=== PATIENT | male | born 1935 | race Caucasian/White ===

== ENCOUNTER 2020-03-02 15:54 | Outpatient (CLI) | payer MEDICARE ==
--- NOTE | 2020-03-02 16:16 | RAD ---
EXAM: XR Finger(s) Rt Min 2 View DATE: 03/02/2020 4:07 PM INDICATION: Fall with right finger injury COMPARISON: None. FINDING: There is a mildly displaced, obliquely oriented fracture involving the small finger proxima l phalangeal base. There is apex dorsal angulation. The distal fracture fragment is displaced ulnarly one cortex width. There is likely fracture extension into the articular surface of the small finger proximal phalangeal base that is nondisplaced. 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 IMPRESSION:Mildly displaced, mild dorsally angulated small finger proximal phalangeal base fracture
== END 2020-03-02 15:55 | disposition home or self-care (01) ==
LOC: NAV RAD 15:54
PROVIDERS: ATTEND Internal Medicine
DX: M79.644 Pain in right finger(s) (principal); S62.616A Displaced fracture of proximal phalanx of right little finger, initial encounter for closed fracture

== ENCOUNTER 2020-07-15 13:01 | Emergency (ER) | payer MEDICARE ==
[2020-07-15] MEDS ORDERED: Ondansetron PF 4 MG/2 ML Vial ONE ×2 (13:38→16:25)
[2020-07-15] MEDS ORDERED: Morphine 4 MG/ML VIAL ONE (13:38)
[2020-07-15 13:56] LABS: #Basophils 0.1 thou/uL (0.0-0.2); #Eosinphils 0.1 thou/uL (0.0-0.7); #Lymphocytes 1.6 thou/uL (1.20-3.40); #Monocytes 0.9 thou/uL (0.11-0.59); #Neutrophils 9.4 thou/uL (1.40-6.50); %Basophils 0.5 % (0.0-1.0); %Eosinophils 0.8 % (0.0-10.0); %Lymphocytes 13.4 % (21.0-51.0); %Monocytes 7.5 % (0.0-10.0); %Neutrophils 77.7 % (42.0-75.0); ALT (SGPT) 42 U/L (8-55); AST (SGOT) 26 U/L (5-34); Albumin 4.2 g/dL (3.4-4.8); Alkaline Phosphatase 73 U/L (40-110); Anion Gap 18 mmol/L (10-20); BUN (Urea Nitrogen) 18 mg/dL (8.4-25.7); Bilirubin, Total 0.6 mg/dL (0.2-1.2); Calc. Creatinine Clearance 0 mL/min (70-130); Calcium 9.7 mg/dL (7.8-10.44); Carbon Dioxide 24 mmol/L (23-31); Chloride 96 mmol/L (98-107); Estimated GFR-MDRD 70; Globulin 3.1 g/dL (2.4-3.5); Glucose 183 mg/dL (83-110); Hemoglobin 15.4 g/dL (14.0-18.0); Mean Corpuscular HGB CONC 33.1 g/dL (32.0-36.0); Mean Corpuscular Volume 96.9 fL (78.0-98.0); Platelet Count 230 thou/uL (130-400); Potassium 3.9 mmol/L (3.5-5.1); Protein, Total 7.3 g/dL (5.8-8.1); RBC Distribution Width 11.1 % (11.5-14.5); Sodium 134 mmol/L (136-145)
[2020-07-15 14:24] LABS: Bilirubin Negative (Negative); Blood, Urine Small (Negative); Clarity Clear (Clear); Glucose, Urine (Dipstick) Negative (Negative); Ketone, Urine Trace mg/dL (Negative); Leukocyte Trace (Negative); Nitrite Positive (Negative); Protein, Urine (Dipstick) 100 mg/dL (Neg-Trace); Urobilinogen 0.2 mg/dL (Less than 2); pH, Urine 5.5 (5.0-9.0)
[2020-07-15] MEDS ORDERED: Ketorolac Tromethamine 30 MG/ML VIAL ONE (14:33)
[2020-07-15 14:43] LABS: Specific Gravity, Urine Greater/Equal 1.030 (1.005-1.030)
[2020-07-15 14:45] LABS: Bacteria/HPF 2+ HPF (None Seen); RBC/HPF 0-3 HPF (0-3); WBC/HPF 21-50 HPF (0-3)
[2020-07-15] MEDS ORDERED: cefTRIAXone\\ROCEPHIN 1 GM VIAL ONE (14:59)
[2020-07-15] MEDS ORDERED: Sodium Chloride 0.9% 100 ML ONE (14:59)
--- NOTE | 2020-07-15 15:19 | CT ---
CT BRAIN: 07/15/20 PROVIDED CLINICAL HISTORY: Headache. FINDINGS: No comparison. The ventricular system is prominent on the basis of central atrophy. Conspicuous chronic microvascula r ischemic changes are seen involving cerebral white matter. Vascular calcifications are noted. There is no evidence for intracranial hemorrhage or mass effect. The osseous structures and extracranial s oft tissues demonstrate no acute abnormality. IMPRESSION: No evidence for intracranial hemorrhage or mass effect. POS: JOSÉ
--- NOTE | 2020-07-15 16:20 | RAD ---
PORTABLE CHEST: 07/15/20 PROVIDED CLINICAL HISTORY: Headache. FINDINGS: No comparisons. Cardiac silhouette is within normal limits. Median sternotomy changes and vascular ca lcifications are seen. Advanced right glenohumeral degenerative change. No focal consolidation, pleur al fluid, or pneumothorax apparent. IMPRESSION: No evidence for an acute cardiopulmonary process. POS: JOSÉ
== END 2020-07-15 17:31 | disposition short-term general hospital (02) ==
LOC: NAV ERS 13:01
DX: N39.0 Urinary tract infection, site not specified (principal); R11.2 Nausea with vomiting, unspecified; R41.0 Disorientation, unspecified; K21.9 Gastro-esophageal reflux disease without esophagitis; E11.9 Type 2 diabetes mellitus without complications; E78.5 Hyperlipidemia, unspecified; I10 Essential (primary) hypertension; Z79.84 Long term (current) use of oral hypoglycemic drugs; Z79.899 Other long term (current) drug therapy
CPT/HCPCS: 36416; 70450; 71045; 80053; 81003; 81015; 83605; 85025; 87040; 87077; 87086; 96365; 96367; 96375; 96376; 36415-59; J0696; J1885; J2270; J2405; J3370; J3490

== ENCOUNTER 2021-07-29 13:14 | Emergency (ER) | payer MEDICARE ==
[2021-07-29] MEDS ORDERED: Sodium Chloride 0.9% 1,000 ML ONE (13:50)
[2021-07-29 14:13] LABS: #Basophils 0.1 thou/uL (0.0-0.2); #Eosinphils 0.1 thou/uL (0.0-0.7); #Lymphocytes 1.3 thou/uL (1.20-3.40); #Monocytes 1.5 thou/uL (0.11-0.59); #Neutrophils 7.7 thou/uL (1.40-6.50); %Basophils 1.1 % (0.0-1.0); %Eosinophils 0.7 % (0.0-10.0); %Lymphocytes 12.4 % (21.0-51.0); %Monocytes 13.7 % (0.0-10.0); %Neutrophils 72.1 % (42.0-75.0); Hemoglobin 12.7 g/dL (14.0-18.0); Mean Corpuscular HGB CONC 32.6 g/dL (32.0-36.0); Mean Corpuscular Hemoglobin 32.2 pg (27.0-31.0); Platelet Count 236 thou/uL (130-400); RBC Distribution Width 12.3 % (11.5-14.5); Red Blood Cell (RBC) Count 3.94 mill/uL (4.70-6.10); White Blood Cell (WBC) Count 10.7 thou/uL (4.8-10.8)
[2021-07-29] MEDS ORDERED: Ondansetron PF 4 MG/2 ML Vial ONE ×2 (14:19→15:47)
[2021-07-29 14:29] LABS: ALT (SGPT) 20 U/L (8-55); AST (SGOT) 28 U/L (5-34); Alkaline Phosphatase 55 U/L (40-110); Anion Gap 14 mmol/L (10-20); BUN (Urea Nitrogen) 21 mg/dL (8.4-25.7); Bilirubin, Total 0.8 mg/dL (0.2-1.2); CK (CPK) 277 U/L (30-200); Calc. Creatinine Clearance 0 mL/min (70-130); Calcium 9.6 mg/dL (7.8-10.44); Carbon Dioxide 27 mmol/L (23-31); Chloride 100 mmol/L (98-107); Globulin 3.6 g/dL (2.4-3.5); Glucose 104 mg/dL (83-110); Lipase 23 U/L (8-78); Potassium 3.9 mmol/L (3.5-5.1); Protein, Total 7.6 g/dL (5.8-8.1); Sodium 137 mmol/L (136-145)
[2021-07-29 14:48] LABS: Bilirubin Small (Negative); Blood, Urine Negative (Negative); Clarity Clear (Clear); Glucose, Urine (Dipstick) Negative (Negative); Ketone, Urine Negative (Negative); Leukocyte Negative (Negative); Nitrite Negative (Negative); Protein, Urine (Dipstick) > or equal to 300 mg/dL (Neg-Trace); pH, Urine 5.5 (5.0-9.0)
[2021-07-29 14:55] LABS: Bacteria/HPF 1+ HPF (None Seen); RBC/HPF None Seen HPF (0-3); Squamous Epithelial 0-3 HPF (0-3)
== END 2021-07-29 15:55 | disposition home or self-care (01) ==
LOC: NAV ERS 13:14
DX: R53.1 Weakness (principal); R11.2 Nausea with vomiting, unspecified; Z79.899 Other long term (current) drug therapy; Z79.82 Long term (current) use of aspirin; Z79.84 Long term (current) use of oral hypoglycemic drugs; K21.9 Gastro-esophageal reflux disease without esophagitis; E11.9 Type 2 diabetes mellitus without complications; E78.5 Hyperlipidemia, unspecified; I10 Essential (primary) hypertension; Z87.891 Personal history of nicotine dependence
CPT/HCPCS: 70450; 80053; 81003; 81015; 82550; 83605; 83690; 84443; 84484; 85025; 93005; 96374; 96376; J2405; J7050

== ENCOUNTER 2021-08-02 12:10 | Inpatient (IN) | payer MEDICARE ==
[2021-08-02] MEDS ORDERED: FLU VACC QS2021-22(65YR UP)/PF 240 MCG/0.7 ML SYRINGE IM ONE (14:15)
[2021-08-02] MEDS ORDERED: Bisacodyl 10 MG SUPP PR PRN (16:18)
[2021-08-02] MEDS ORDERED: Senokot S 8.6-50 MG TAB PO PRN (16:18)
[2021-08-02] MEDS ORDERED: Ondansetron PF 4 MG/2 ML Vial IVP PRN (16:18)
[2021-08-02] MEDS ORDERED: Dextrose 50% Abboject 50 ML SYRINGE SLOW IVP PRN (16:18)
[2021-08-02] MEDS ORDERED: Acetaminophen 650 MG Suppository PR PRN (16:18)
[2021-08-02] MEDS ORDERED: Loperamide HCl 2 MG CAP PO PRN ×2 (16:18)
[2021-08-02] MEDS ORDERED: Cepastat Lozenges 1 LOZ PO PRN (16:18)
[2021-08-02] MEDS ORDERED: HumaLOG 300 UNITS/3 ML VIAL SC PRN (16:18)
[2021-08-02] MEDS ORDERED: Calcium Carbonate 500 MG ChewTAB PO PRN (16:18)
[2021-08-02] MEDS ORDERED: Bisacodyl 5 MG TAB PO PRN (16:18)
[2021-08-02] MEDS ORDERED: Artificial Tear Sol 15 ML BOT EA EYE PRN (16:18)
[2021-08-02 16:32] LABS: SARS-CoV-2 NAA Rapid Test Not Detected (NotDetected)
[2021-08-02] MEDS: Sodium Chloride 0.65% Nasal 44 ML BOT EA NARE PRN (16:51)
[2021-08-02] MEDS: Loratadine 10 MG TAB PO PRN ×2 (16:53→21:03)
[2021-08-02] MEDS: Sucralfate 1 GM TAB PO SCH (21:03)
[2021-08-02] MEDS: Metoprolol Tartrate 50 MG TAB PO SCH (21:03)
[2021-08-02] MEDS: Benzonatate 100 MG CAP PO PRN (21:03)
[2021-08-02] MEDS: Acetaminophen 325 MG TAB PO SCH (21:04)
[2021-08-02] MEDS: HYDROcodone/Acetaminophen 5/325 mg Tablet PO PRN (23:45)
[2021-08-03 06:54] LABS: Anion Gap 12 mmol/L (10-20); BUN (Urea Nitrogen) 21 mg/dL (8.4-25.7); Calc. Creatinine Clearance 109 mL/min (70-130); Calcium 9.1 mg/dL (7.8-10.44); Carbon Dioxide 30 mmol/L (23-31); Chloride 100 mmol/L (98-107); Glucose 110 mg/dL (83-110); Potassium 4.2 mmol/L (3.5-5.1); Sodium 138 mmol/L (136-145)
[2021-08-03 07:14] LABS: #Basophils 0.1 thou/uL (0.0-0.2); #Monocytes 0.9 thou/uL (0.11-0.59); #Neutrophils 7.7 thou/uL (1.40-6.50); %Basophils 0.8 % (0.0-1.0); %Eosinophils 0.2 % (0.0-10.0); %Lymphocytes 10.4 % (21.0-51.0); %Neutrophils 79.6 % (42.0-75.0); Hemoglobin 11.8 g/dL (14.0-18.0); Mean Corpuscular HGB CONC 32.4 g/dL (32.0-36.0); Mean Corpuscular Hemoglobin 32.4 pg (27.0-31.0); Mean Platelet Volume 7.3 fL (7.4-10.4); Platelet Count 300 thou/uL (130-400); RBC Distribution Width 12.7 % (11.5-14.5); Red Blood Cell (RBC) Count 3.63 mill/uL (4.70-6.10); White Blood Cell (WBC) Count 9.6 thou/uL (4.8-10.8)
[2021-08-03] MEDS: Citalopram 20 MG TAB PO SCH (08:28)
[2021-08-03] MEDS: metFORMIN XR 500 MG TAB PO SCH (08:28)
[2021-08-03] MEDS: Clopidogrel Bisulfate 75 MG TAB PO SCH (08:28)
[2021-08-03] MEDS: Sucralfate 1 GM TAB PO SCH ×2 (08:28→20:39)
[2021-08-03] MEDS: Metoprolol Tartrate 50 MG TAB PO SCH ×2 (08:28→20:39)
[2021-08-03] MEDS: Acetaminophen 325 MG TAB PO SCH ×2 (08:28→20:39)
[2021-08-03] MEDS: HYDROcodone/Acetaminophen 5/325 mg Tablet PO PRN ×3 (09:35→17:37)
[2021-08-03] MEDS: hydrOXYzine 25 MG TAB PO PRN (20:39)
[2021-08-04] MEDS: HYDROcodone/Acetaminophen 5/325 mg Tablet PO PRN ×6 (03:08→23:26)
[2021-08-04] MEDS: metFORMIN XR 500 MG TAB PO SCH (08:18)
[2021-08-04] MEDS: Metoprolol Tartrate 50 MG TAB PO SCH ×2 (08:18→20:41)
[2021-08-04] MEDS: Clopidogrel Bisulfate 75 MG TAB PO SCH (08:18)
[2021-08-04] MEDS: Acetaminophen 325 MG TAB PO SCH ×2 (08:18→20:41)
[2021-08-04] MEDS: Sucralfate 1 GM TAB PO SCH ×2 (08:18→20:41)
[2021-08-04] MEDS: Citalopram 20 MG TAB PO SCH (08:18)
[2021-08-04] MEDS ORDERED: Lidocaine 5% Patch TD SCH (09:00)
[2021-08-04] MEDS: Loratadine 10 MG TAB PO PRN (15:10)
[2021-08-04] MEDS: hydrOXYzine 25 MG TAB PO PRN (20:41)
[2021-08-04] MEDS ORDERED: Transdermal Patch Removal TOP SCH (21:00)
[2021-08-05] MEDS: HYDROcodone/Acetaminophen 5/325 mg Tablet PO PRN ×5 (03:49→20:24)
[2021-08-05] MEDS: metFORMIN XR 500 MG TAB PO SCH (07:55)
[2021-08-05] MEDS: Sodium Chloride 0.65% Nasal 44 ML BOT EA NARE PRN (07:55)
[2021-08-05] MEDS: Metoprolol Tartrate 50 MG TAB PO SCH ×2 (07:56→20:23)
[2021-08-05] MEDS: Citalopram 20 MG TAB PO SCH (07:56)
[2021-08-05] MEDS: Sucralfate 1 GM TAB PO SCH ×2 (07:56→20:23)
[2021-08-05] MEDS: Acetaminophen 325 MG TAB PO SCH ×2 (07:57→20:23)
[2021-08-05] MEDS: Clopidogrel Bisulfate 75 MG TAB PO SCH (07:57)
[2021-08-05] MEDS ORDERED: Lidocaine 5% Patch TD SCH (14:00)
[2021-08-05] MEDS: hydrOXYzine 25 MG TAB PO PRN (20:23)
[2021-08-06] MEDS ORDERED: Transdermal Patch Removal TOP SCH (04:00)
[2021-08-06] MEDS: HYDROcodone/Acetaminophen 5/325 mg Tablet PO PRN ×2 (04:30→12:03)
[2021-08-06] MEDS: Clopidogrel Bisulfate 75 MG TAB PO SCH (08:52)
[2021-08-06] MEDS: Sucralfate 1 GM TAB PO SCH ×2 (08:52→20:30)
[2021-08-06] MEDS: Metoprolol Tartrate 50 MG TAB PO SCH ×2 (08:52→20:30)
[2021-08-06] MEDS: Citalopram 20 MG TAB PO SCH (08:52)
[2021-08-06] MEDS: metFORMIN XR 500 MG TAB PO SCH (08:52)
[2021-08-06] MEDS: Acetaminophen 325 MG TAB PO SCH ×2 (08:53→20:30)
[2021-08-06] MEDS: Acetaminophen/Codeine 30-300mg Tablet PO PRN ×2 (18:28→23:07)
[2021-08-06] MEDS: Lidocaine 5% Patch TD SCH (20:30)
[2021-08-07] MEDS: Sodium Chloride 0.65% Nasal 44 ML BOT EA NARE PRN (00:28)
[2021-08-07] MEDS: Acetaminophen/Codeine 30-300mg Tablet PO PRN ×4 (04:11→20:46)
[2021-08-07] MEDS: Sucralfate 1 GM TAB PO SCH ×2 (07:34→20:47)
[2021-08-07] MEDS: Citalopram 20 MG TAB PO SCH (07:34)
[2021-08-07] MEDS: metFORMIN XR 500 MG TAB PO SCH (07:34)
[2021-08-07] MEDS: Metoprolol Tartrate 50 MG TAB PO SCH ×2 (07:35→20:47)
[2021-08-07] MEDS: Clopidogrel Bisulfate 75 MG TAB PO SCH (07:35)
[2021-08-07] MEDS: Acetaminophen 325 MG TAB PO SCH ×2 (07:35→20:47)
[2021-08-07] MEDS: LIDOCAINE Patch Removal TOP SCH (07:37)
[2021-08-07 17:36] LABS: Bilirubin Negative (Negative); Blood, Urine Negative (Negative); Clarity Clear (Clear); Glucose, Urine (Dipstick) Negative (Negative); Ketone, Urine Negative (Negative); Leukocyte Negative (Negative); Nitrite Negative (Negative); Protein, Urine (Dipstick) 100 mg/dL (Neg-Trace); Specific Gravity, Urine 1.025 (1.005-1.030); pH, Urine 6.5 (5.0-9.0)
[2021-08-07 17:45] LABS: RBC/HPF 0-3 HPF (0-3); Squamous Epithelial 0-3 HPF (0-3); Urine Culture Reflex No No; WBC/HPF 0-3 HPF (0-3)
[2021-08-07] MEDS: Lidocaine 5% Patch TD SCH (20:45)
[2021-08-07] MEDS: hydrOXYzine 25 MG TAB PO PRN (20:47)
[2021-08-08] MEDS: Acetaminophen/Codeine 30-300mg Tablet PO PRN ×3 (06:11→21:01)
[2021-08-08] MEDS: Acetaminophen 325 MG TAB PO SCH ×2 (07:38→21:01)
[2021-08-08] MEDS: Sucralfate 1 GM TAB PO SCH ×2 (07:38→21:00)
[2021-08-08] MEDS: metFORMIN XR 500 MG TAB PO SCH (07:38)
[2021-08-08] MEDS: Clopidogrel Bisulfate 75 MG TAB PO SCH (07:38)
[2021-08-08] MEDS: Metoprolol Tartrate 50 MG TAB PO SCH ×2 (07:38→21:00)
[2021-08-08] MEDS: Citalopram 20 MG TAB PO SCH (07:38)
[2021-08-08] MEDS: LIDOCAINE Patch Removal TOP SCH (12:37)
[2021-08-08] MEDS: hydrOXYzine 25 MG TAB PO PRN (21:00)
[2021-08-08] MEDS: Lidocaine 5% Patch TD SCH (21:00)
[2021-08-09] MEDS: Acetaminophen/Codeine 30-300mg Tablet PO PRN ×3 (05:57→21:13)
[2021-08-09] MEDS: Metoprolol Tartrate 50 MG TAB PO SCH ×2 (07:50→21:11)
[2021-08-09] MEDS: Sucralfate 1 GM TAB PO SCH ×2 (07:50→21:11)
[2021-08-09] MEDS: metFORMIN XR 500 MG TAB PO SCH (07:50)
[2021-08-09] MEDS: Citalopram 20 MG TAB PO SCH (07:50)
[2021-08-09] MEDS: LIDOCAINE Patch Removal TOP SCH (07:51)
[2021-08-09] MEDS: Clopidogrel Bisulfate 75 MG TAB PO SCH (07:51)
[2021-08-09] MEDS: Acetaminophen 325 MG TAB PO SCH ×2 (07:51→21:10)
[2021-08-09] MEDS: Guaifenesin DM 100-10/5 ML UDCUP PO PRN (10:41)
[2021-08-09] MEDS: Loratadine 10 MG TAB PO PRN (10:42)
[2021-08-09] MEDS: Benzonatate 100 MG CAP PO PRN (10:42)
[2021-08-09] MEDS: Acetaminophen 325 MG TAB PO PRN (16:58)
[2021-08-09] MEDS: Lidocaine 5% Patch TD SCH (21:11)
[2021-08-09] MEDS: hydrOXYzine 25 MG TAB PO PRN (21:11)
[2021-08-10] MEDS: Acetaminophen/Codeine 30-300mg Tablet PO PRN ×4 (08:01→23:45)
[2021-08-10] MEDS: Citalopram 20 MG TAB PO SCH (08:02)
[2021-08-10] MEDS: Sucralfate 1 GM TAB PO SCH ×2 (08:02→20:28)
[2021-08-10] MEDS: metFORMIN XR 500 MG TAB PO SCH (08:02)
[2021-08-10] MEDS: Acetaminophen 325 MG TAB PO SCH ×2 (08:02→20:27)
[2021-08-10] MEDS: Clopidogrel Bisulfate 75 MG TAB PO SCH (08:03)
[2021-08-10] MEDS: Metoprolol Tartrate 50 MG TAB PO SCH ×2 (08:03→20:27)
[2021-08-10] MEDS: LIDOCAINE Patch Removal TOP SCH ×2 (08:04→09:00)
[2021-08-10 19:28] LABS: SARS-CoV-2 PCR by NAA Not Detected (NotDetected)
[2021-08-10] MEDS: Lidocaine 5% Patch TD SCH (20:28)
[2021-08-11] MEDS: Acetaminophen/Codeine 30-300mg Tablet PO PRN ×4 (04:40→21:18)
[2021-08-11] MEDS: Acetaminophen 325 MG TAB PO SCH ×2 (08:00→21:19)
[2021-08-11] MEDS: Citalopram 20 MG TAB PO SCH (08:00)
[2021-08-11] MEDS: Metoprolol Tartrate 50 MG TAB PO SCH ×2 (08:01→21:19)
[2021-08-11] MEDS: Sucralfate 1 GM TAB PO SCH ×2 (08:01→21:19)
[2021-08-11] MEDS: Clopidogrel Bisulfate 75 MG TAB PO SCH (08:01)
[2021-08-11] MEDS: metFORMIN XR 500 MG TAB PO SCH (08:01)
[2021-08-11] MEDS: LIDOCAINE Patch Removal TOP SCH (09:00)
[2021-08-11] MEDS: Lidocaine 5% Patch TD SCH (21:18)
[2021-08-11] MEDS: hydrOXYzine 25 MG TAB PO PRN (21:19)
[2021-08-12] MEDS: LIDOCAINE Patch Removal TOP SCH ×2 (06:21→20:29)
[2021-08-12] MEDS: Acetaminophen/Codeine 30-300mg Tablet PO PRN ×2 (08:05→20:27)
[2021-08-12] MEDS: Acetaminophen 325 MG TAB PO SCH ×2 (08:06→20:27)
[2021-08-12] MEDS: Metoprolol Tartrate 50 MG TAB PO SCH ×2 (08:07→20:27)
[2021-08-12] MEDS: metFORMIN XR 500 MG TAB PO SCH (08:07)
[2021-08-12] MEDS: Sucralfate 1 GM TAB PO SCH ×2 (08:07→20:27)
[2021-08-12] MEDS: Clopidogrel Bisulfate 75 MG TAB PO SCH (08:07)
[2021-08-12] MEDS: Citalopram 20 MG TAB PO SCH (08:07)
[2021-08-12] MEDS: Ondansetron ODT 4 MG TAB PO PRN (18:26)
[2021-08-12] MEDS: hydrOXYzine 25 MG TAB PO PRN (20:27)
[2021-08-12] MEDS: Lidocaine 5% Patch TD SCH (20:28)
[2021-08-13] MEDS: Acetaminophen 325 MG TAB PO SCH ×2 (08:07→20:06)
[2021-08-13] MEDS: Citalopram 20 MG TAB PO SCH (08:08)
[2021-08-13] MEDS: Clopidogrel Bisulfate 75 MG TAB PO SCH (08:08)
[2021-08-13] MEDS: metFORMIN XR 500 MG TAB PO SCH (08:09)
[2021-08-13] MEDS: Sucralfate 1 GM TAB PO SCH ×2 (08:09→20:06)
[2021-08-13] MEDS: Metoprolol Tartrate 50 MG TAB PO SCH ×2 (08:09→20:06)
[2021-08-13] MEDS: Acetaminophen/Codeine 30-300mg Tablet PO PRN ×2 (08:11→18:08)
[2021-08-13] MEDS: hydrOXYzine 25 MG TAB PO PRN (20:06)
[2021-08-13] MEDS: LIDOCAINE Patch Removal TOP SCH (20:07)
[2021-08-13] MEDS: Lidocaine 5% Patch TD SCH (20:07)
[2021-08-14] MEDS: Acetaminophen 325 MG TAB PO SCH ×2 (08:07→20:19)
[2021-08-14] MEDS: Clopidogrel Bisulfate 75 MG TAB PO SCH (08:08)
[2021-08-14] MEDS: Citalopram 20 MG TAB PO SCH (08:08)
[2021-08-14] MEDS: metFORMIN XR 500 MG TAB PO SCH (08:09)
[2021-08-14] MEDS: Acetaminophen/Codeine 30-300mg Tablet PO PRN ×3 (08:09→20:19)
[2021-08-14] MEDS: Metoprolol Tartrate 50 MG TAB PO SCH ×2 (08:09→20:19)
[2021-08-14] MEDS: Sucralfate 1 GM TAB PO SCH ×2 (09:42→20:19)
[2021-08-14] MEDS: hydrOXYzine 25 MG TAB PO PRN (20:19)
[2021-08-14] MEDS: Lidocaine 5% Patch TD SCH (20:20)
[2021-08-14] MEDS: LIDOCAINE Patch Removal TOP SCH (20:20)
[2021-08-15] MEDS: Acetaminophen/Codeine 30-300mg Tablet PO PRN ×2 (08:05→19:30)
[2021-08-15] MEDS: Sucralfate 1 GM TAB PO SCH ×2 (09:01→20:19)
[2021-08-15] MEDS: metFORMIN XR 500 MG TAB PO SCH (09:01)
[2021-08-15] MEDS: Citalopram 20 MG TAB PO SCH (09:01)
[2021-08-15] MEDS: Metoprolol Tartrate 50 MG TAB PO SCH ×2 (09:01→20:19)
[2021-08-15] MEDS: Clopidogrel Bisulfate 75 MG TAB PO SCH (09:01)
[2021-08-15] MEDS: Acetaminophen 325 MG TAB PO SCH ×2 (09:02→20:21)
[2021-08-15] MEDS: Lidocaine 5% Patch TD SCH (20:19)
[2021-08-15] MEDS: hydrOXYzine 25 MG TAB PO PRN (20:20)
[2021-08-16] MEDS: Acetaminophen/Codeine 30-300mg Tablet PO PRN ×2 (07:57→13:49)
[2021-08-16] MEDS: Acetaminophen 325 MG TAB PO SCH ×2 (07:59→21:10)
[2021-08-16] MEDS: Metoprolol Tartrate 50 MG TAB PO SCH ×2 (08:00→21:09)
[2021-08-16] MEDS: metFORMIN XR 500 MG TAB PO SCH (08:00)
[2021-08-16] MEDS: Citalopram 20 MG TAB PO SCH (08:00)
[2021-08-16] MEDS: Sucralfate 1 GM TAB PO SCH ×2 (08:00→21:09)
[2021-08-16] MEDS: Clopidogrel Bisulfate 75 MG TAB PO SCH (08:00)
[2021-08-16] MEDS: LIDOCAINE Patch Removal TOP SCH (10:28)
[2021-08-16] MEDS: Lidocaine 5% Patch TD SCH (20:53)
[2021-08-16] MEDS: hydrOXYzine 25 MG TAB PO PRN (21:09)
[2021-08-17] MEDS: Acetaminophen/Codeine 30-300mg Tablet PO PRN (08:08)
[2021-08-17] MEDS: Acetaminophen 325 MG TAB PO SCH ×2 (09:22→20:57)
[2021-08-17] MEDS: Citalopram 20 MG TAB PO SCH (09:23)
[2021-08-17] MEDS: Clopidogrel Bisulfate 75 MG TAB PO SCH (09:23)
[2021-08-17] MEDS: Sucralfate 1 GM TAB PO SCH ×2 (09:23→20:56)
[2021-08-17] MEDS: Metoprolol Tartrate 50 MG TAB PO SCH ×2 (09:24→20:56)
[2021-08-17] MEDS: metFORMIN XR 500 MG TAB PO SCH (09:24)
[2021-08-17] MEDS: LIDOCAINE Patch Removal TOP SCH (09:26)
[2021-08-17] MEDS: Indomethacin 25 mg Capsule PO SCH ×2 (15:31→20:56)
[2021-08-17 16:42] LABS: SARS-CoV-2 PCR by NAA Not Detected (NotDetected)
[2021-08-17] MEDS: hydrOXYzine 25 MG TAB PO PRN (20:56)
[2021-08-17] MEDS: Lidocaine 5% Patch TD SCH (20:57)
[2021-08-18] MEDS: metFORMIN XR 500 MG TAB PO SCH (08:31)
[2021-08-18] MEDS: Indomethacin 25 mg Capsule PO SCH ×3 (08:31→20:25)
[2021-08-18] MEDS: Sucralfate 1 GM TAB PO SCH ×2 (08:31→20:25)
[2021-08-18] MEDS: Acetaminophen 325 MG TAB PO SCH ×2 (08:31→20:25)
[2021-08-18] MEDS: Clopidogrel Bisulfate 75 MG TAB PO SCH (08:32)
[2021-08-18] MEDS: Metoprolol Tartrate 50 MG TAB PO SCH ×2 (08:32→20:25)
[2021-08-18] MEDS: LIDOCAINE Patch Removal TOP SCH (08:32)
[2021-08-18] MEDS: Citalopram 20 MG TAB PO SCH (08:32)
[2021-08-18] MEDS: hydrOXYzine 25 MG TAB PO PRN (20:25)
[2021-08-18] MEDS: Lidocaine 5% Patch TD SCH (20:29)
[2021-08-19] MEDS: Acetaminophen/Codeine 30-300mg Tablet PO PRN (08:00)
[2021-08-19] MEDS: Acetaminophen 325 MG TAB PO SCH ×2 (08:02→20:38)
[2021-08-19] MEDS: Citalopram 20 MG TAB PO SCH (08:03)
[2021-08-19] MEDS: Clopidogrel Bisulfate 75 MG TAB PO SCH (08:03)
[2021-08-19] MEDS: Metoprolol Tartrate 50 MG TAB PO SCH ×2 (08:03→20:39)
[2021-08-19] MEDS: Indomethacin 25 mg Capsule PO SCH ×3 (08:03→20:38)
[2021-08-19] MEDS: metFORMIN XR 500 MG TAB PO SCH (08:03)
[2021-08-19] MEDS: Sucralfate 1 GM TAB PO SCH ×2 (08:03→20:39)
[2021-08-19] MEDS: LIDOCAINE Patch Removal TOP SCH (08:04)
[2021-08-19] MEDS: Lidocaine 5% Patch TD SCH (20:39)
[2021-08-19] MEDS: hydrOXYzine 25 MG TAB PO PRN (20:39)
[2021-08-20] MEDS: metFORMIN XR 500 MG TAB PO SCH (08:01)
[2021-08-20] MEDS: Acetaminophen 325 MG TAB PO SCH ×2 (08:01→20:31)
[2021-08-20] MEDS: Indomethacin 25 mg Capsule PO SCH ×3 (08:01→20:29)
[2021-08-20] MEDS: Sucralfate 1 GM TAB PO SCH ×2 (08:01→20:29)
[2021-08-20] MEDS: Metoprolol Tartrate 50 MG TAB PO SCH ×2 (08:01→20:29)
[2021-08-20] MEDS: Clopidogrel Bisulfate 75 MG TAB PO SCH (08:01)
[2021-08-20] MEDS: Citalopram 20 MG TAB PO SCH (08:01)
[2021-08-20] MEDS: LIDOCAINE Patch Removal TOP SCH (09:00)
[2021-08-20] MEDS: Ondansetron ODT 4 MG TAB PO PRN (10:12)
[2021-08-20] MEDS: Sulfameth/Trimethoprim DS 800-160mg TAB PO SCH (20:29)
[2021-08-20] MEDS: hydrOXYzine 25 MG TAB PO PRN (20:30)
[2021-08-20] MEDS: Lidocaine 5% Patch TD SCH (20:32)
[2021-08-21 06:33] LABS: #Basophils 0.1 thou/uL (0.0-0.2); #Eosinphils 0.1 thou/uL (0.0-0.7); #Lymphocytes 0.7 thou/uL (1.20-3.40); #Monocytes 0.8 thou/uL (0.11-0.59); #Neutrophils 4.5 thou/uL (1.40-6.50); %Basophils 1.4 % (0.0-1.0); %Eosinophils 2.4 % (0.0-10.0); %Lymphocytes 10.6 % (21.0-51.0); %Neutrophils 72.7 % (42.0-75.0); Hemoglobin 13.5 g/dL (14.0-18.0); Mean Corpuscular HGB CONC 31.8 g/dL (32.0-36.0); Mean Platelet Volume 7.7 fL (7.4-10.4); Platelet Count 288 thou/uL (130-400); RBC Distribution Width 12.7 % (11.5-14.5); Red Blood Cell (RBC) Count 4.22 mill/uL (4.70-6.10); White Blood Cell (WBC) Count 6.2 thou/uL (4.8-10.8)
[2021-08-21 06:41] LABS: Anion Gap 16 mmol/L (10-20); BUN (Urea Nitrogen) 22 mg/dL (8.4-25.7); Calc. Creatinine Clearance 73 mL/min (70-130); Calcium 10.1 mg/dL (7.8-10.44); Carbon Dioxide 24 mmol/L (23-31); Chloride 99 mmol/L (98-107); Glucose 110 mg/dL (83-110); Potassium 5.1 mmol/L (3.5-5.1); Sodium 134 mmol/L (136-145)
[2021-08-21] MEDS: Sucralfate 1 GM TAB PO SCH ×2 (07:47→20:28)
[2021-08-21] MEDS: Indomethacin 25 mg Capsule PO SCH ×3 (07:47→20:29)
[2021-08-21] MEDS: metFORMIN XR 500 MG TAB PO SCH (07:48)
[2021-08-21] MEDS: Citalopram 20 MG TAB PO SCH (07:48)
[2021-08-21] MEDS: Clopidogrel Bisulfate 75 MG TAB PO SCH (07:48)
[2021-08-21] MEDS: Sulfameth/Trimethoprim DS 800-160mg TAB PO SCH ×2 (07:48→20:29)
[2021-08-21] MEDS: Metoprolol Tartrate 50 MG TAB PO SCH ×2 (07:48→20:29)
[2021-08-21] MEDS: Acetaminophen 325 MG TAB PO SCH ×2 (07:48→20:29)
[2021-08-21] MEDS: LIDOCAINE Patch Removal TOP SCH (07:49)
[2021-08-21] MEDS: Lidocaine 5% Patch TD SCH (20:29)
[2021-08-21] MEDS: hydrOXYzine 25 MG TAB PO PRN (20:29)
[2021-08-22] MEDS: metFORMIN XR 500 MG TAB PO SCH (09:03)
[2021-08-22] MEDS: Sulfameth/Trimethoprim DS 800-160mg TAB PO SCH ×2 (09:03→21:05)
[2021-08-22] MEDS: Citalopram 20 MG TAB PO SCH (09:03)
[2021-08-22] MEDS: Indomethacin 25 mg Capsule PO SCH ×3 (09:03→21:05)
[2021-08-22] MEDS: Sucralfate 1 GM TAB PO SCH ×2 (09:03→21:05)
[2021-08-22] MEDS: Metoprolol Tartrate 50 MG TAB PO SCH ×2 (09:03→21:06)
[2021-08-22] MEDS: Clopidogrel Bisulfate 75 MG TAB PO SCH (09:03)
[2021-08-22] MEDS: Acetaminophen 325 MG TAB PO SCH ×2 (09:04→21:06)
[2021-08-22] MEDS: Acetaminophen/Codeine 30-300mg Tablet PO PRN (09:05)
[2021-08-22] MEDS: LIDOCAINE Patch Removal TOP SCH (09:06)
[2021-08-22] MEDS: Sodium Chloride 0.65% Nasal 44 ML BOT EA NARE PRN (09:07)
[2021-08-22] MEDS: hydrOXYzine 25 MG TAB PO PRN (21:05)
[2021-08-22] MEDS: Lidocaine 5% Patch TD SCH (21:08)
[2021-08-23] MEDS: Indomethacin 25 mg Capsule PO SCH ×3 (08:06→20:44)
[2021-08-23] MEDS: Citalopram 20 MG TAB PO SCH (08:07)
[2021-08-23] MEDS: Metoprolol Tartrate 50 MG TAB PO SCH ×2 (08:07→20:44)
[2021-08-23] MEDS: Sulfameth/Trimethoprim DS 800-160mg TAB PO SCH ×2 (08:07→20:44)
[2021-08-23] MEDS: metFORMIN XR 500 MG TAB PO SCH (08:07)
[2021-08-23] MEDS: Clopidogrel Bisulfate 75 MG TAB PO SCH (08:07)
[2021-08-23] MEDS: Sucralfate 1 GM TAB PO SCH ×2 (08:07→20:44)
[2021-08-23] MEDS: Acetaminophen 325 MG TAB PO SCH ×2 (08:08→20:45)
[2021-08-23] MEDS: LIDOCAINE Patch Removal TOP SCH (09:47)
[2021-08-23] MEDS: Ondansetron ODT 4 MG TAB PO PRN (09:53)
[2021-08-23] MEDS: Lidocaine 5% Patch TD SCH (20:45)
[2021-08-24] MEDS: Acetaminophen/Codeine 30-300mg Tablet PO PRN (07:39)
[2021-08-24] MEDS: Sucralfate 1 GM TAB PO SCH ×2 (08:40→20:42)
[2021-08-24] MEDS: Indomethacin 25 mg Capsule PO SCH ×3 (08:40→20:42)
[2021-08-24] MEDS: Sulfameth/Trimethoprim DS 800-160mg TAB PO SCH ×2 (08:40→20:42)
[2021-08-24] MEDS: Citalopram 20 MG TAB PO SCH (08:41)
[2021-08-24] MEDS: metFORMIN XR 500 MG TAB PO SCH (08:41)
[2021-08-24] MEDS: Acetaminophen 325 MG TAB PO SCH ×2 (08:41→20:42)
[2021-08-24] MEDS: Metoprolol Tartrate 50 MG TAB PO SCH ×2 (08:41→20:42)
[2021-08-24] MEDS: Clopidogrel Bisulfate 75 MG TAB PO SCH (08:41)
[2021-08-24] MEDS: LIDOCAINE Patch Removal TOP SCH (08:42)
[2021-08-24] MEDS: Lidocaine 5% Patch TD SCH (20:42)
[2021-08-25] MEDS: Acetaminophen/Codeine 30-300mg Tablet PO PRN (07:44)
[2021-08-25] MEDS: Sucralfate 1 GM TAB PO SCH ×2 (07:45→20:16)
[2021-08-25] MEDS: metFORMIN XR 500 MG TAB PO SCH (07:45)
[2021-08-25] MEDS: Indomethacin 25 mg Capsule PO SCH ×3 (07:45→20:16)
[2021-08-25] MEDS: Acetaminophen 325 MG TAB PO SCH ×2 (07:46→20:16)
[2021-08-25] MEDS: Clopidogrel Bisulfate 75 MG TAB PO SCH (07:46)
[2021-08-25] MEDS: Sulfameth/Trimethoprim DS 800-160mg TAB PO SCH ×2 (07:47→20:16)
[2021-08-25] MEDS: Citalopram 20 MG TAB PO SCH (07:47)
[2021-08-25] MEDS: Metoprolol Tartrate 50 MG TAB PO SCH ×2 (07:47→20:16)
[2021-08-25] MEDS: LIDOCAINE Patch Removal TOP SCH (07:48)
[2021-08-25] MEDS: Lidocaine 5% Patch TD SCH (20:16)
[2021-08-25 23:28] LABS: SARS-CoV-2 PCR by NAA Not Detected (NotDetected)
[2021-08-26] MEDS: Acetaminophen 325 MG TAB PO SCH ×2 (07:54→20:54)
[2021-08-26] MEDS: Clopidogrel Bisulfate 75 MG TAB PO SCH (07:56)
[2021-08-26] MEDS: Indomethacin 25 mg Capsule PO SCH ×3 (07:56→20:57)
[2021-08-26] MEDS: Sucralfate 1 GM TAB PO SCH ×2 (07:56→20:54)
[2021-08-26] MEDS: Citalopram 20 MG TAB PO SCH (07:56)
[2021-08-26] MEDS: Sulfameth/Trimethoprim DS 800-160mg TAB PO SCH ×2 (07:56→20:54)
[2021-08-26] MEDS: Metoprolol Tartrate 50 MG TAB PO SCH ×2 (07:57→20:57)
[2021-08-26] MEDS: metFORMIN XR 500 MG TAB PO SCH (07:58)
[2021-08-26] MEDS: LIDOCAINE Patch Removal TOP SCH (07:59)
[2021-08-26] MEDS: Lidocaine 5% Patch TD SCH (20:58)
[2021-08-27] MEDS: Clopidogrel Bisulfate 75 MG TAB PO SCH (09:04)
[2021-08-27] MEDS: metFORMIN XR 500 MG TAB PO SCH (09:04)
[2021-08-27] MEDS: Sulfameth/Trimethoprim DS 800-160mg TAB PO SCH ×2 (09:04→20:07)
[2021-08-27] MEDS: Acetaminophen 325 MG TAB PO SCH ×2 (09:05→20:07)
[2021-08-27] MEDS: Citalopram 20 MG TAB PO SCH (09:05)
[2021-08-27] MEDS: Sucralfate 1 GM TAB PO SCH ×2 (09:05→20:07)
[2021-08-27] MEDS: Indomethacin 25 mg Capsule PO SCH ×3 (09:05→20:06)
[2021-08-27] MEDS: Metoprolol Tartrate 50 MG TAB PO SCH ×2 (09:06→20:06)
[2021-08-27] MEDS: LIDOCAINE Patch Removal TOP SCH (09:24)
[2021-08-27] MEDS: hydrOXYzine 25 MG TAB PO PRN (20:07)
[2021-08-27] MEDS: Lidocaine 5% Patch TD SCH (20:09)
[2021-08-28] MEDS: Indomethacin 25 mg Capsule PO SCH ×2 (07:53→16:28)
[2021-08-28] MEDS: metFORMIN XR 500 MG TAB PO SCH (07:53)
[2021-08-28] MEDS: Clopidogrel Bisulfate 75 MG TAB PO SCH (07:53)
[2021-08-28] MEDS: Citalopram 20 MG TAB PO SCH (07:53)
[2021-08-28] MEDS: Sulfameth/Trimethoprim DS 800-160mg TAB PO SCH ×2 (07:53→21:10)
[2021-08-28] MEDS: Sucralfate 1 GM TAB PO SCH ×2 (07:53→21:10)
[2021-08-28] MEDS: Acetaminophen 325 MG TAB PO SCH ×2 (07:54→21:10)
[2021-08-28] MEDS: Metoprolol Tartrate 50 MG TAB PO SCH ×2 (07:54→21:09)
[2021-08-28] MEDS: Acetaminophen/Codeine 30-300mg Tablet PO PRN ×2 (08:28→13:49)
[2021-08-28] MEDS: Ondansetron ODT 4 MG TAB PO PRN (13:49)
[2021-08-28] MEDS: LIDOCAINE Patch Removal TOP SCH (13:49)
[2021-08-28] MEDS: Mirtazapine 15 MG TAB PO SCH (21:09)
[2021-08-28] MEDS: Lidocaine 5% Patch TD SCH (21:11)
[2021-08-29] MEDS: Guaifenesin DM 100-10/5 ML UDCUP PO PRN (07:42)
[2021-08-29] MEDS: Citalopram 20 MG TAB PO SCH (07:42)
[2021-08-29] MEDS: Sucralfate 1 GM TAB PO SCH ×2 (07:43→20:54)
[2021-08-29] MEDS: Metoprolol Tartrate 50 MG TAB PO SCH ×2 (07:43→20:54)
[2021-08-29] MEDS: Sulfameth/Trimethoprim DS 800-160mg TAB PO SCH ×2 (07:43→20:54)
[2021-08-29] MEDS: Acetaminophen 325 MG TAB PO SCH ×2 (07:43→20:54)
[2021-08-29] MEDS: Clopidogrel Bisulfate 75 MG TAB PO SCH (07:43)
[2021-08-29] MEDS: Ondansetron ODT 4 MG TAB PO PRN (07:43)
[2021-08-29] MEDS: Benzonatate 100 MG CAP PO PRN (07:43)
[2021-08-29] MEDS: metFORMIN XR 500 MG TAB PO SCH (07:43)
[2021-08-29] MEDS: LIDOCAINE Patch Removal TOP SCH (07:44)
[2021-08-29] MEDS: Mirtazapine 15 MG TAB PO SCH (20:54)
[2021-08-29] MEDS: Lidocaine 5% Patch TD SCH (20:56)
[2021-08-30] MEDS: Acetaminophen 325 MG TAB PO SCH ×2 (08:09→21:41)
[2021-08-30] MEDS: Clopidogrel Bisulfate 75 MG TAB PO SCH (09:11)
[2021-08-30] MEDS: metFORMIN XR 500 MG TAB PO SCH (09:11)
[2021-08-30] MEDS: Sucralfate 1 GM TAB PO SCH ×2 (09:11→21:41)
[2021-08-30] MEDS: Citalopram 20 MG TAB PO SCH (09:12)
[2021-08-30] MEDS: Metoprolol Tartrate 50 MG TAB PO SCH ×2 (09:12→21:41)
[2021-08-30] MEDS: Sulfameth/Trimethoprim DS 800-160mg TAB PO SCH ×2 (09:12→21:41)
[2021-08-30] MEDS: LIDOCAINE Patch Removal TOP SCH (10:06)
[2021-08-30] MEDS: clonazePAM 0.5 MG TAB PO PRN ×2 (12:19→21:41)
[2021-08-30] MEDS: Acetaminophen 325 MG TAB PO PRN (15:43)
[2021-08-30] MEDS: Mirtazapine 15 MG TAB PO SCH (21:41)
[2021-08-30] MEDS: hydrOXYzine 25 MG TAB PO PRN (21:41)
[2021-08-30] MEDS: Lidocaine 5% Patch TD SCH (21:44)
[2021-08-31] MEDS: LIDOCAINE Patch Removal TOP SCH (07:47)
[2021-08-31] MEDS: Acetaminophen 325 MG TAB PO SCH ×2 (08:48→20:45)
[2021-08-31] MEDS: Sucralfate 1 GM TAB PO SCH ×2 (09:44→20:45)
[2021-08-31] MEDS: Clopidogrel Bisulfate 75 MG TAB PO SCH (09:44)
[2021-08-31] MEDS: Citalopram 20 MG TAB PO SCH (09:44)
[2021-08-31] MEDS: Metoprolol Tartrate 50 MG TAB PO SCH ×2 (09:44→20:45)
[2021-08-31] MEDS: Sulfameth/Trimethoprim DS 800-160mg TAB PO SCH ×2 (09:44→20:45)
[2021-08-31] MEDS: metFORMIN XR 500 MG TAB PO SCH (09:44)
[2021-08-31] MEDS: Mirtazapine 15 MG TAB PO SCH (20:45)
[2021-08-31] MEDS: hydrOXYzine 25 MG TAB PO PRN (20:45)
[2021-08-31] MEDS: clonazePAM 0.5 MG TAB PO PRN (20:45)
[2021-08-31] MEDS: Lidocaine 5% Patch TD SCH (20:46)
[2021-09-01] MEDS: Sulfameth/Trimethoprim DS 800-160mg TAB PO SCH ×2 (08:01→21:19)
[2021-09-01] MEDS: Sucralfate 1 GM TAB PO SCH ×2 (08:01→21:18)
[2021-09-01] MEDS: Metoprolol Tartrate 50 MG TAB PO SCH ×2 (08:01→21:18)
[2021-09-01] MEDS: Clopidogrel Bisulfate 75 MG TAB PO SCH (08:01)
[2021-09-01] MEDS: Citalopram 20 MG TAB PO SCH (08:02)
[2021-09-01] MEDS: metFORMIN XR 500 MG TAB PO SCH (08:02)
[2021-09-01] MEDS: Acetaminophen 325 MG TAB PO SCH ×2 (08:02→21:19)
[2021-09-01] MEDS: LIDOCAINE Patch Removal TOP SCH (08:03)
[2021-09-01] MEDS: Mirtazapine 15 MG TAB PO SCH (21:18)
[2021-09-01] MEDS: hydrOXYzine 25 MG TAB PO PRN (21:18)
[2021-09-01] MEDS: clonazePAM 0.5 MG TAB PO PRN (21:18)
[2021-09-01] MEDS: Lidocaine 5% Patch TD SCH (21:19)
[2021-09-02 03:30] VITALS: BMI 29.6
[2021-09-02] MEDS: Sucralfate 1 GM TAB PO SCH ×2 (08:21→20:21)
[2021-09-02] MEDS: Acetaminophen 325 MG TAB PO SCH ×2 (08:21→20:21)
[2021-09-02] MEDS: metFORMIN XR 500 MG TAB PO SCH (08:22)
[2021-09-02] MEDS: LIDOCAINE Patch Removal TOP SCH (08:22)
[2021-09-02] MEDS: Clopidogrel Bisulfate 75 MG TAB PO SCH (08:22)
[2021-09-02] MEDS: Metoprolol Tartrate 50 MG TAB PO SCH ×2 (08:22→20:22)
[2021-09-02] MEDS: Citalopram 20 MG TAB PO SCH (08:22)
[2021-09-02] MEDS: Sulfameth/Trimethoprim DS 800-160mg TAB PO SCH ×2 (08:22→20:22)
[2021-09-02 17:23] LABS: SARS-CoV-2 PCR by NAA Not Detected (NotDetected)
[2021-09-02] MEDS: Mirtazapine 15 MG TAB PO SCH (20:22)
[2021-09-02] MEDS: Lidocaine 5% Patch TD SCH (20:23)
[2021-09-02] MEDS: hydrOXYzine 25 MG TAB PO PRN (22:00)
[2021-09-02] MEDS: clonazePAM 0.5 MG TAB PO PRN (22:00)
[2021-09-03] MEDS: Sulfameth/Trimethoprim DS 800-160mg TAB PO SCH ×2 (09:16→19:59)
[2021-09-03] MEDS: Metoprolol Tartrate 50 MG TAB PO SCH ×2 (09:16→19:59)
[2021-09-03] MEDS: metFORMIN XR 500 MG TAB PO SCH (09:16)
[2021-09-03] MEDS: Sucralfate 1 GM TAB PO SCH ×2 (09:16→19:59)
[2021-09-03] MEDS: Citalopram 20 MG TAB PO SCH (09:16)
[2021-09-03] MEDS: Clopidogrel Bisulfate 75 MG TAB PO SCH (09:16)
[2021-09-03] MEDS: Acetaminophen 325 MG TAB PO SCH ×2 (09:17→20:00)
[2021-09-03] MEDS: LIDOCAINE Patch Removal TOP SCH (10:12)
[2021-09-03] MEDS: Acetaminophen/Codeine 30-300mg Tablet PO PRN (19:32)
[2021-09-03] MEDS: Lidocaine 5% Patch TD SCH (19:58)
[2021-09-03] MEDS: hydrOXYzine 25 MG TAB PO PRN (19:59)
[2021-09-03] MEDS: Mirtazapine 15 MG TAB PO SCH (19:59)
[2021-09-04 06:43] LABS: #Basophils 0.1 thou/uL (0.0-0.2); #Eosinphils 0.2 thou/uL (0.0-0.7); #Lymphocytes 1.9 thou/uL (1.20-3.40); #Monocytes 0.9 thou/uL (0.11-0.59); #Neutrophils 5.2 thou/uL (1.40-6.50); %Basophils 1.1 % (0.0-1.0); %Eosinophils 2.6 % (0.0-10.0); %Lymphocytes 23.1 % (21.0-51.0); %Neutrophils 62.3 % (42.0-75.0); Hemoglobin 11.2 g/dL (14.0-18.0); Mean Corpuscular HGB CONC 30.9 g/dL (32.0-36.0); Mean Corpuscular Hemoglobin 30.6 pg (27.0-31.0); Mean Corpuscular Volume 99.1 fL (78.0-98.0); Mean Platelet Volume 7.2 fL (7.4-10.4); Platelet Count 393 thou/uL (130-400); RBC Distribution Width 12.8 % (11.5-14.5); Red Blood Cell (RBC) Count 3.65 mill/uL (4.70-6.10); White Blood Cell (WBC) Count 8.4 thou/uL (4.8-10.8)
[2021-09-04 06:54] LABS: Anion Gap 12 mmol/L (10-20); BUN (Urea Nitrogen) 25 mg/dL (8.4-25.7); Calc. Creatinine Clearance 60 mL/min (70-130); Calcium 9.6 mg/dL (7.8-10.44); Carbon Dioxide 25 mmol/L (23-31); Chloride 104 mmol/L (98-107); Glucose 100 mg/dL (83-110); Potassium 4.6 mmol/L (3.5-5.1); Sodium 136 mmol/L (136-145)
[2021-09-04 07:57] VITALS: BP 144/66; TEMP 98.2
[2021-09-04] MEDS: Metoprolol Tartrate 50 MG TAB PO SCH (08:20)
[2021-09-04] MEDS: Sulfameth/Trimethoprim DS 800-160mg TAB PO SCH (08:20)
[2021-09-04] MEDS: metFORMIN XR 500 MG TAB PO SCH (08:20)
[2021-09-04] MEDS: Citalopram 20 MG TAB PO SCH (08:20)
[2021-09-04] MEDS: Sucralfate 1 GM TAB PO SCH (08:20)
[2021-09-04] MEDS: Clopidogrel Bisulfate 75 MG TAB PO SCH (08:20)
[2021-09-04] MEDS: Acetaminophen 325 MG TAB PO SCH (08:21)
[2021-09-04] MEDS: LIDOCAINE Patch Removal TOP SCH (08:24)
[2021-09-04 11:43] LABS: Hemoglobin A1c 5.8 % (4.0-6.0)
[2021-09-04] MEDS: Acetaminophen 325 MG TAB PO PRN (15:55)
== END 2021-09-04 16:34 | DRG 558 ==
LOC: NAV ACUTE 12:26
PROVIDERS: ADMIT Internal Medicine; ATTEND Internal Medicine
PROC: 0M9 Bursae and Ligaments, Drainage (ICD-10-PCS; principal; 2021-08-17)
DX: M71.152 Other infective bursitis, left hip (principal); I10 Essential (primary) hypertension; Z20.822 Contact with and (suspected) exposure to COVID-19; I25.10 Atherosclerotic heart disease of native coronary artery without angina pectoris; E78.5 Hyperlipidemia, unspecified; K21.9 Gastro-esophageal reflux disease without esophagitis; R53.1 Weakness; E11.9 Type 2 diabetes mellitus without complications; G89.29 Other chronic pain; B95.62 Methicillin resistant Staphylococcus aureus infection as the cause of diseases classified elsewhere; M54.42 Lumbago with sciatica, left side; M46.1 Sacroiliitis, not elsewhere classified; F41.9 Anxiety disorder, unspecified; R09.02 Hypoxemia; F32.A Depression, unspecified; Z96.651 Presence of right artificial knee joint; Z86.73 Personal history of transient ischemic attack (TIA), and cerebral infarction without residual deficits; Z85.46 Personal history of malignant neoplasm of prostate; Z95.1 Presence of aortocoronary bypass graft; Z95.5 Presence of coronary angioplasty implant and graft; Z87.891 Personal history of nicotine dependence; Z88.0 Allergy status to penicillin; Z79.84 Long term (current) use of oral hypoglycemic drugs; Z79.899 Other long term (current) drug therapy; Z79.02 Long term (current) use of antithrombotics/antiplatelets
CPT/HCPCS: 36415; 36416; 72131; 80048; 81001; 83036; 84550; 85025; 90471; 90662; G0008; Q0162; U0002; U0003; U0005

== ENCOUNTER 2022-04-01 12:39 | Outpatient (CLI) | payer MEDICARE | END 2022-04-01 12:40 | disposition home or self-care (01) | LOC: NAV RAD 12:39 | PROVIDERS: ATTEND Family Medicine | DX: R05.1 Acute cough (principal) | CPT/HCPCS: 71046 ==

== ENCOUNTER 2022-07-22 12:39 | Emergency (ER) | payer MEDICARE ==
[2022-07-22 13:37] LABS: Bilirubin Small (Negative); Blood, Urine Large (Negative); Clarity Turbid (Clear); Glucose, Urine (Dipstick) Negative (Negative); Ketone, Urine 15 mg/dL (Negative); Leukocyte Large (Negative); Nitrite Negative (Negative); Protein, Urine (Dipstick) > or equal to 300 mg/dL (Neg-Trace); Urobilinogen 0.2 mg/dL (Less than 2); pH, Urine 5.5 (5.0-9.0)
[2022-07-22 13:38] LABS: Specific Gravity, Urine 1.028 (1.002-1.036)
[2022-07-22 13:41] LABS: Bacteria/HPF None Seen HPF (None Seen); Squamous Epithelial 0-3 HPF (0-3); WBC/HPF Greater than 50 HPF (0-3)
== END 2022-07-22 14:44 | disposition home or self-care (01) ==
LOC: NAV ERS 12:39
DX: N39.0 Urinary tract infection, site not specified (principal); E78.5 Hyperlipidemia, unspecified; E11.9 Type 2 diabetes mellitus without complications; I10 Essential (primary) hypertension; Z79.899 Other long term (current) drug therapy; Z79.82 Long term (current) use of aspirin; Z79.84 Long term (current) use of oral hypoglycemic drugs
CPT/HCPCS: 81003; 81015; 87086; 99283